=== PATIENT | male | born 1980 | race Caucasian/White ===

== ENCOUNTER 2021-09-25 | Emergency (ER) | payer OTHER, SELFPAY ==
--- NOTE | ~2021-09-25 | CT_ITS ---
EXAMINATION: CT ABDOMEN AND PELVIS WITHOUT CONTRAST CLINICAL INFORMATION: Right inguinal hernia, rule out incarceration COMPARISON: None TECHNIQUE: Multidetector volumetric imaging was performed from the superior aspect of the liver through the pubic symphysis. Sagittal and coronal reformatted images were obtained on the technologist's workstation. This CT examination was performed using dose optimization techniques as appropriate, variously including the following: *Automated exposure control *Adjustment of mA and/or kV according to patient size (this includes techniques or standardized protocols for targeted exams where dose is matched to indication/reason for exam; i.e. extremities or head) *Use of iterative reconstruction technique DLP: 813 mGy-cm FINDINGS: LUNG BASES: There is subtle tree-in-bud type nodularity in the basilar left lower lobe. LIVER, GALLBLADDER, AND BILIARY TREE: The liver is normal in size, shape, and attenuation. No focal hepatic lesion or biliary ductal dilatation is identified. The gallbladder is unremarkable with no evidence of radiopaque gallstones, gallbladder wall thickening, or obvious pericholecystic inflammatory changes. PANCREAS: Not adequately evaluated without intravenous contrast SPLEEN: Enlarged, measuring approximately 16 cm in the axial plane and 18 cm in craniocaudal dimension. ADRENAL GLANDS: Unremarkable. KIDNEYS AND URETERS: The kidneys are normal in size, shape, and attenuation. No hydronephrosis, hydroureter, or calculi seen. No perinephric stranding. BLADDER: Unremarkable. GASTROINTESTINAL TRACT: No evidence of bowel obstruction. There is moderate stool throughout the colon. No significant bowel wall thickening or pericolonic inflammation is seen, though assessment is suboptimal in some regions due to lack of intra-abdominal fat. Appendix appears nondilated. No free fluid or free air is seen. ABDOMINAL WALL/MUSCULATURE: No appreciable hernia. There is asymmetric enlargement and heterogeneous hyperattenuation of the right iliacus and inferior psoas muscle, suspicious for intramuscular hematoma. In the axial plane this measures up to approximately 10.2 x 7.4 cm, and this extends inferiorly into the proximal thigh for approximately 14 cm in total craniocaudal dimension. There is adjacent stranding in the right retroperitoneum and between muscle planes in the proximal thigh. LYMPH NODES: No lymphadenopathy is seen, though assessment is significantly limited in the absence of intravenous contrast and lack of intra-abdominal fat. VASCULAR: There is atherosclerotic calcification along the aorta. PELVIC VISCERA: Unremarkable. OSSEOUS STRUCTURES: There is disc space narrowing with surrounding endplate sclerosis at T10-T11. CT/CT abdomen pelvis wo con IMPRESSION: 1. Asymmetric enlargement and heterogeneous hyperattenuation of the right iliacus and inferior psoas muscle, suspicious for intramuscular hematoma. Surrounding edema in the thigh and retroperitoneum. 2. Splenomegaly. 3. Subtle tree-in-bud type pulmonary nodularity in the left lower lobe, suggesting mild infectious/inflammatory bronchiolitis. 4. Disc space narrowing with surrounding endplate sclerosis at T10-T11, which could reflect chronic sequelae of osteomyelitis in the proper clinical setting.
--- NOTE | ~2021-09-25 | CT_ITS ---
EXAMINATION: CT FEMUR WITHOUT CONTRAST, RIGHT CLINICAL INFORMATION: Pop in right thigh, now with severe pain COMPARISON: CT abdomen/pelvis performed concurrently TECHNIQUE: No intravenous contrast was utilized. Multidetector helical imaging was performed through the right femur. Coronal and sagittal reformatted images were created. This CT examination was performed using dose optimization techniques as appropriate, variously including the following: *Automated exposure control *Adjustment of mA and/or kV according to patient size (this includes techniques or standardized protocols for targeted exams where dose is matched to indication/reason for exam; i.e. extremities or head) *Use of iterative reconstruction technique DLP: 813 mGy-cm FINDINGS: There is redemonstration of heterogeneous hyperattenuation and enlargement of the right iliacus and the lower iliopsoas muscle most suspicious for intramuscular hematoma. This extends into the distal portion of the musculature in the proximal right thigh. There is surrounding stranding in the right retroperitoneum and within the intermuscular fat planes in the thigh. Overall extent of this abnormality is better seen on accompanying abdomen/pelvis CT. Osseous alignment across the hip is anatomic, and the joint space appears slightly narrowed. No acute fracture is seen. Alignment at the knee is anatomic without significant effusion. Intrapelvic structures are described on separate abdomen/pelvis CT report. CT/CT femur RT wo con IMPRESSION: As noted on the accompanying abdomen/pelvis CT, there is asymmetric enlargement and heterogeneous hyperattenuation of the right iliacus and inferior psoas muscle, suspicious for intramuscular hematoma. Surrounding edema in the thigh and retroperitoneum.
[2021-09-25 00:12] VITALS: BP 133/82; PULSE 74; RESP 14; TEMP 37; O2SAT 100
[2021-09-25 00:45] LABS: Basophils Percent Auto 0.2 % (0-2); Eosinophils Percent Auto 0.5 % (0-4); Hemoglobin 8.4 g/dl (14.0-18.0); Neutrophils Percent Auto 73.2 % (45-73); PLT ABN DIST 1; Red Cell Distribution Width 22.5 % (11.0-16.0); SCAN SMEAR FLAG 1
[2021-09-25 00:46] LABS: Hematocrit 27.1 % (42.0-52.0); Imm Gran Abs Auto 0.02 X10*3/uL (0.00-0.03); Imm Gran Pct Auto 0.3 % (0.0-0.4); Lymphocytes Percent Auto 16.8 % (20-40); Mean Corpuscular Hemoglobin 21.1 pg (27.0-33.0); Mean Corpuscular Volume 67.9 fL (80.0-98.0); Monocytes Absolute Auto 0.5 X10*3/uL (0.1-1.2); Neutrophils Absolute Auto 4.4 x10*3/uL (2.0-8.3); Platelet Count 125 X10*3/uL (160-400); Red Blood Count 3.99 X10*6/uL (4.60-5.80)
[2021-09-25 00:47] LABS: MANUAL DIFF FLAG NO
[2021-09-25 01:15] LABS: Alanine Aminotransferase 19 U/L (0-40); Albumin Level 3.9 g/dL (3.5-5.0); Alkaline Phosphatase 52 U/L (39-117); Anion Gap 16 (12-20); Aspartate Amino Transferase 40 U/L (5-37); Bilirubin Direct 0.5 mg/dL (0.0-0.5); Bilirubin Total 1.2 mg/dL (0.0-1.0); Blood Urea Nitrogen 14 mg/dL (9-16); Calcium 9.1 mg/dL (8.4-10.2); Carbon Dioxide 23 mmol/L (22-29); Chloride 98 mmol/L (96-108); Creatinine Clr Calc Pharmacy 94.8; Estimated Glomerular Filt Rate > 60; Glucose Random 143 mg/dL (60-115); Lipase 14 U/L (8-78); Potassium 3.8 mmol/L (3.3-5.1); Sodium 133 mmol/L (135-145); Total Protein 6.8 g/dL (6.5-8.0)
[2021-09-25 02:34] LABS: Appearance Urine CLEAR; Color Urine DK YELLOW; Glucose Urine UA NEG (NEG); Leukocyte Esterase Urine NEG (NEG); Nitrite Urine NEG (NEG); Urine Blood NEG (NEG); Urine Ketones NEG (NEG); Urine Protein 1+ MG/DL (NEG-TRACE)
[2021-09-25 02:39] LABS: RBC Urine 0-2 /HPF (0); Squamous Epithelial Cell Urine 1+ /LPF
--- NOTE | 2021-09-25 03:06 | ED_ITS ---
HPI - Abdominal Pain General Chief Complaint: Abdominal Pain Stated Complaint: hernia Time Seen by Provider: 09/25/21 02:53 Source: patient Mode of arrival: ambulatory Limitations: no limitations History of Present Illness HPI narrative: This is a 41-year-old male history of hemophilia (factor 8 deficiency) came in with abdominal pain for 2 days patient is known to have hernia now he has been having pain since for 2 days, feeling nauseous but no vomiting, had small bowel movements, passing flatus. While his friend was helping him to get into the car he pulled his right thigh felt a pop, patient states that the pain has been worsening for the last 2 days worry about bleeding inside the hip joint. Related Data Allergies Allergy/AdvReac Type Severity Reaction Status Date / Time aspirin AdvReac Intermediate Others Verified 09/25/21 02:56 morphine AdvReac Intermediate Headache Verified 09/25/21 02:56 Review of Systems Review of Systems All other systems are reviewed and are negative Constitutional: Reports as per HPI and Reports no additional constitutional complaints Eyes: Reports as per HPI and Reports no additional eye complaints Reports system reviewed and no additional complaints, except as documented Cardiovascular: Reports as per HPI and Reports no additional cardiovascular complaints Respiratory: Reports as per HPI and Reports no additional respiratory complaints Gastrointestinal: Reports as per HPI and Reports no additional gastrointestinal complaints Genitourinary: Reports no additional female genitourinary complaints Musculoskeletal: Reports no additional musculoskeletal complaints Skin/Breast: Reports system reviewed and no additional complaints, except as docu Psychiatric: Reports no additional psychiatric complaints Endocrine: Reports no additional endocrine complaints Hematologic/Lymphatic: Reports no additional hematologic/lymphatic complaints Allergic/Immunologic: Reports no additional allergic/immunologic complaints Reports system reviewed and no additional complaints, except as documented and Reports Abnormal speech present [facility] Social History Social History Advance Directives: No Physical Exam ED Vital Signs: Vital Signs - 24 hr 09/25/21 00:12 09/25/21 03:55 09/25/21 05:57 Temperature 98.6 F Pulse Rate 74 72 60 Respiratory Rate 14 16 16 Blood Pressure 133/82 119/71 111/60 Pulse Oximetry 100 99 100 BMI result Body Mass Index 20.0 Vital signs have been reviewed as appeared to be correct. Blood pressure normal. Heart rate normal. Respiration rate normal. Temperature normal. Oxygen saturation normal. Appearance: Alert. Oriented X3. No acute distress. Head: Normal external exam. Normocephalic. Atraumatic. No Boston signs noted. No raccoon eyes noted Eyes: PERRLA. EOMI. Conjunctiva and sclera normal. Eyelids normal. ENT: TM's Normal. Pharynx normal. Uvula midline. Moist mucous membranes. No trismus noted. No drooling noted. No muffled voice noted. Neck: Normal inspection. Neck supple. FROM. No adenopathy. Thyroid Normal. No meningeal signs. No neck mass noted. CVS: Normal heart rate and rhythm. Heart sound normal. No murmurs noted. Pulses normal throughout. Respiratory: No respiratory distress. Painless inspiration. Breath sounds norm al. No wheezes/rales/rhonchi noted. Chest nontender. No accessory muscle usage noted or decreased air movement noted. Abdomen: Soft and nontender. Bowel sounds normal in all 4 quadrants. No distenti on noted. No organomegaly noted. No visible injury noted. Back: No CVA tenderness. Full range of motion noted. Skin: Skin warm and dry. Normal skin color. Normal skin turgor. No rashes/lesions/lacerations noted. Extremities: No lower extremity edema. Extremities exhibit normal range of motion. Extremities nontender. Neuro: Oriented X 3. Cranial nerve exam: II-XII are grossly intact No motor deficit. No sensory deficit. Reflexes normal. Course Course Course Narrative: Assessment and plan. 41-year-old male with history of hemophilia and factor 8 deficiency came in with right lower extremities pain and right-sided abdominal pain, CBC showed anemia. Await for CT to rule internal bleed, will consult Oncology/Hematology, case signed out to Dr. Lazo. MDM - Abdominal Pain Lab Data Result diagrams: 09/25/21 00:35 09/25/21 00:34 Labs: Lab Results 09/25/21 09/25/21 09/25/21 Range/Units 00:34 00:35 02:27 WBC 6.0 (4.8-10.8) X10*3/uL RBC 3.99 L (4.60-5.80) X10*6/uL Hgb 8.4 L (14.0-18.0) g/dl Hct 27.1 L (42.0-52.0) % MCV 67.9 L (80.0-98.0) fL MCH 21.1 L (27.0-33.0) pg MCHC 31.0 (31.0-36.0) g/dl RDW 22.5 H (11.0-16.0) % Plt Count 125 L (160-400) X10*3/uL MPV TNP Immature Gran % (Auto) 0.3 (0.0-0.4) % Neut % (Auto) 73.2 H (45-73) % Lymph % (Auto) 16.8 L (20-40) % Winston % (Auto) 9.0 (2-11) % Eos % (Auto) 0.5 (0-4) % Baso % (Auto) 0.2 (0-2) % Lymph # (Auto) 1.0 L (1.2-4.9) X10*3/uL Winston # (Auto) 0.5 (0.1-1.2) X10*3/uL Eos # (Auto) 0.0 (0.0-0.4) X10*3/uL Baso # (Auto) 0.0 (0.0-0.2) X10*3/uL Abs Immat Gran (auto) 0.02 (0.00-0.03) X10*3/uL Absolute Neuts (auto) 4.4 (2.0-8.3) x10*3/uL Absolute Nucleated RBC 0.000 (0.0-0.012) X10*3/uL Nucleated RBC % (auto) 0.0 (0.0-0.2) /100WBC Sodium 133 L (135-145) mmol/L Potassium 3.8 (3.3-5.1) mmol/L Chloride 98 (96-108) mmol/L Carbon Dioxide 23 (22-29) mmol/L Anion Gap 16 (12-20) BUN 14 (9-16) mg/dL Creatinine 0.93 (0.5-1.4) mg/dL Estim Creat Clear Calc 94.8 Estimated GFR > 60 Random Glucose 143 H (60-115) mg/dL Calcium 9.1 (8.4-10.2) mg/dL Total Bilirubin 1.2 H (0.0-1.0) mg/dL Direct Bilirubin 0.5 (0.0-0.5) mg/dL AST 40 H (5-37) U/L ALT 19 (0-40) U/L Alkaline Phosphatase 52 (39-117) U/L Total Protein 6.8 (6.5-8.0) g/dL Albumin 3.9 (3.5-5.0) g/dL Lipase 14 (8-78) U/L Urine Color DK YELLOW Urine Appearance CLEAR Urine pH 6.0 (5.0-8.0) Ur Specific Ewing 1.020 (1.005-1.025) Urine Protein 1+ H (NEG-TRACE) MG/DL Urine Glucose (UA) NEG (NEG) MG/DL Urine Ketones NEG (NEG) MG/DL Urine Blood NEG (NEG) Urine Nitrite NEG (NEG) Ur Leukocyte Esterase NEG (NEG) Urine RBC 0-2 (0) /HPF Urine WBC 1-4 (0-4) /HPF Ur Squamous Epith Cells 1+ /LPF Urine Bacteria NONE /LPF Discharge Plan Discharge Clinical Impression: Abdominal pain, Hemophilia Patient Disposition: Still a Patient
[2021-09-25] MEDS: oxyCODONE HCl Immed Release 5 MG TABLET PO ×2 (03:52→07:51)
[2021-09-25 03:55] VITALS: BP 119/71; PULSE 72; RESP 16; O2SAT 99
[2021-09-25] MEDS: oxyCODONE HCl Immed Release 5 MG TABLET 10 MG PO (04:47)
--- NOTE | 2021-09-25 05:15 | PC.NURSE ---
weatherization field technician mentioned that pt was unwilling to straighten his legs for the CT exam. Flaca MENSAH medicated pt with oxycodone 5mg IR and weatherization field technician will now try again.
[2021-09-25 05:57] VITALS: BP 111/60; PULSE 60; RESP 16; O2SAT 100
--- NOTE | 2021-09-25 05:58 | PC.NURSE ---
Per Dr. Gato fam for pt to have 10mg oxycodone IR for CT procedure.
[2021-09-25 07:37] LABS: COVID-19 Test Negative (Negative)
[2021-09-25 08:24] VITALS: BP 128/88; PULSE 67; RESP 15; O2SAT 94
--- NOTE | 2021-09-25 09:07 | PC.NURSE ---
with u/s IV placed in right upper forearm by , labs also drawn off the line
[2021-09-25] MEDS: HYDROmorphone HCl 0.5 MG/0.5 ML SYRINGE IVPUSH (09:12)
[2021-09-25 09:16] LABS: INTERNATIONAL NORM RATIO 1.2 (0.9-1.1); Prothrombin Time 13.9 SEC (9.9-13.0)
[2021-09-25 09:20] LABS: Fibrinogen > 700 MG/DL (259-690)
== END 2021-09-25 10:25 | disposition left against medical advice (07) ==
PROVIDERS: Emergency Medicine; Emergency Provider Student in an Organized Health Care Education/Training Program
DX: R10.9 Unspecified abdominal pain (principal); D66 Hereditary factor VIII deficiency; D64.9 Anemia, unspecified; S70.11XA Contusion of right thigh, initial encounter; K40.90 Unilateral inguinal hernia, without obstruction or gangrene, not specified as recurrent; Z20.822 Contact with and (suspected) exposure to COVID-19; X58.XXXA Exposure to other specified factors, initial encounter; Y93.9 Activity, unspecified; Y92.9 Unspecified place or not applicable; Y99.9 Unspecified external cause status
CPT/HCPCS: 36410; 36415; 73700; 74176; 80053; 81001; 82248; 83690; 85025; 85240; 85250; 85384; 85610; 85730; 86850; 86900; 86901; 87635; 96374; 99284; J1170

== ENCOUNTER 2022-03-24 23:45 | Emergency (ER) | payer OTHER, SELFPAY ==
[2022-03-25 00:10] VITALS: BP 113/65; PULSE 106; RESP 18; TEMP 37.2; O2SAT 100; BMI 18.6
[2022-03-25 03:03] VITALS: BP 106/64; PULSE 73; RESP 13; TEMP 36.4; O2SAT 100
--- NOTE | 2022-03-25 05:55 | PC.NURSE ---
at bedside. Bilateral lower leg wound dressing changed.
--- NOTE | 2022-03-25 05:58 | ED_ITS ---
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 He is declining to state this time but states that he will come back after he has ?gotten his girlfriend settled in?. Related Data Previous Rx's Medication Instructions Recorded cephalexin 500 mg capsule 500 mg PO BID 7 days #14 caps 03/25/22 doxycycline hyclate 100 mg tablet 100 mg PO BID 7 days #14 tabs 03/25/22 Allergies Allergy/AdvReac Type Severity Reaction Status Date / Time aspirin AdvReac Intermediate Others Verified 03/25/22 00:17 morphine AdvReac Intermediate Headache Verified 03/25/22 00:17 Review of Systems Review of Systems: Pertinent positives and negatives as stated in HPI 10 point review of systems is otherwise negative. [facility] [place] Past Medical History Source: nursing notes reviewed Social History Social History Alcohol intake: never Patient Tobacco Use Status: Former Tobacco user Substance Use Type: Heroin Advance Directives: No Physical Exam Vital Signs: Vital Signs: Last Vital Signs Temp 97.6 F 03/25/22 03:03 Pulse 73 03/25/22 03:03 Resp 13 03/25/22 03:03 BP 106/64 03/25/22 03:03 Pulse Ox 100 03/25/22 03:03 O2 Del Method 03/25/22 03:03 BMI result Body Mass Index 18.6 VITAL SIGNS: Reviewed. GENERAL: Chronically ill, cachectic, in mild distress. HEAD: Normocephalic/atraumatic EYES: PERRLA, EOMI EARS: Ext canals without abnormality OROPHARYNX: no oral lesions noted, posterior pharynx clear LUNGS: Normal breath sounds. No adventitious sounds or accessory muscle use. SpO2<100> CARDIOVASCULAR: Regular rate and rhythm without noted murmurs ABDOMEN: Soft, non-tender, non-distended with bowel sounds. MUSCULOSKELETAL: No tenderness, deformities, or effusions noted on gross inspection. EXTREMITIES: No cyanosis, clubbing or edema; BILATERAL LOWER LEGS: Multiple ulcerations in various stages with obvious necrosis and foul odor. SKIN: Inspection of the skin reveals no rashes NEUROLOGIC: Alert and oriented x 4. Strength and sensation to light touch were grossly intact x 4. Skin: Other: Course Course Course Narrative: 41-year-old male who does not wish to stay but is agreeable to start antibiotics and says that he will return for a more complete evaluation after he gets his girlfriend settled in. We did give him initial antibiotics here in the emergenc y room and sent a prescription to his pharmacy. In addition, I gave him a referral to follow-up with the [facility]. Discharge Plan Discharge Clinical Impression: Non-healing ulcer of lower leg with fat layer exposed Patient Disposition: Home, Self-Care Instructions: Cellulitis (ED) Additional Instructions: 1. You should return to the emergency room after you have your personal situat ion taking care of. 2. You have been prescribed antibiotics as well as provided with a referral to teresa [email or web address]-up with the [facility]. Return to the ER for worsening symptoms. Prescriptions: New doxycycline hyclate 100 mg tablet 100 mg PO BID 7 Days Qty: 14 0RF cephalexin 500 mg capsule 500 mg PO BID 7 Days Qty: 14 0RF Referrals: [facility] [place] [facility] [Outside]
[2022-03-25] MEDS: Doxycycline Monohydrate 100 MG CAPSULE PO (06:07)
[2022-03-25] MEDS: cephALEXin 500 MG CAPSULE PO (06:07)
--- NOTE | 2022-03-25 06:24 | PC.NURSE ---
Discharge instructions reviewed with pt. Pt advised to return to the ED once personal situation is resolved. Pt agrees with plan and verbalizes understanding.
== END 2022-03-25 06:28 | disposition home or self-care (01) ==
PROVIDERS: Emergency Provider Student in an Organized Health Care Education/Training Program
DX: L97.922 Non-pressure chronic ulcer of unspecified part of left lower leg with fat layer exposed (principal); L97.912 Non-pressure chronic ulcer of unspecified part of right lower leg with fat layer exposed; F19.10 Other psychoactive substance abuse, uncomplicated; Z87.891 Personal history of nicotine dependence
CPT/HCPCS: 99283

== ENCOUNTER 2022-03-25 06:50 | Observation (INO) | payer OTHER, SELFPAY ==
[2022-03-25 06:52] VITALS: BMI 21.5
--- NOTE | 2022-03-25 07:24 | ED.SKABFB ---
HPI - Skin/Abscess/Foreign Bdy General Chief complaint: Skin/Abscess/Foreign Body Stated complaint: wound check Time Seen by Provider: 03/25/22 07:17 Source: patient Mode of arrival: ambulatory History of Present Illness HPI narrative: 41 yo male presents to the ED with bilateral lower extremity wounds. The patient was seen earlier today for same but left AMA b/c of social issues. The patient states this has been worsening over the past several days, present for at least a couple of weeks. Denies fever or shaking chills. Has not tried anything to improve the wounds. complaint: lesion Onset (ago): week(s) Location: LLE and RLE Severity: severe Related Data Previous Rx's Medication Instructions Recorded cephalexin 500 mg capsule 500 mg PO BID 7 days #14 caps 03/25/22 doxycycline hyclate 100 mg tablet 100 mg PO BID 7 days #14 tabs 03/25/22 Allergies Allergy/AdvReac Type Severity Reaction Status Date / Time aspirin AdvReac Intermediate Others Verified 03/25/22 00:17 morphine AdvReac Intermediate Headache Verified 03/25/22 00:17 Review of Systems Constitutional: Constitutional: Denies chills, Denies fatigue, Denies fever(s) and Denies headache(s) Eyes: Eyes: Denies blurry vision, Denies diplopia and Denies loss of vision ENT: Denies dizziness, Denies headache(s) and Denies nasal congestion Cardiovascular: Cardiovascular: Denies chest pain, Denies syncope, Denies lightheadedness, Denies Loss of Consciousness and Denies dyspnea Respiratory: Respiratory: Denies cough and Denies dyspnea Gastrointestinal: Gastrointestinal: Denies constipation, Denies nausea and Denies vomiting Genitourinary: Genitourinary: Denies oliguria and Denies difficulty urinating Musculoskeletal: Musculoskeletal: Denies back pain and Denies muscle weakness Integumentary/Breasts: Skin/Breast: Reports as per HPI, Reports skin ulcer, Reports sores and Reports wounds Neurologic: Denies Abnormal speech present, Denies dizziness, Denies syncope, Denies headache(s) and Denies loss of vision Psychiatric: Psychiatric: Reports no additional psychiatric complaints Endocrine: Endocrine: Denies fatigue PMFSH Past Medical History Attestation statement: The following information was validated with the patient. Social History Social History Alcohol intake: never Patient Tobacco Use Status: Former Tobacco user Substance Use Type: Heroin Advance Directives: No Physical Exam Vital Signs: Vital Signs: BMI result Body Mass Index 21.5 Const: General: cooperative and no acute distress Nutritional Appearance: underweight Orientation/consciousness: patient oriented x3 Limitations: No altered mental status HEENT: Head: Yes normal to inspection, Yes normocephalic and Yes atraumatic Ears: external ears normal General nose exam: Normal external nose present Face and sinus: Yes normal facial exam Eyes: Conjunctivae: conjunctivae normal Sclerae: sclerae normal Pupils: Equal, round and reactive pupils present EOM: EOMs intact bilaterally Neck: Neck: Yes normal visual inspection and Yes full ROM Chest: Chest palpation & inspection: normal inspection of the chest Resp: Effort & Inspection: normal respiratory effort, able to speak in complete sentences and no audible wheezes Cardio: Rate: regular rate Rhythm: regular rhythm GI: Inspection: Yes normal to inspection and No Abdominal wall edema Skin: Wounds: wounds noted Neuro: General: patient oriented x3 and CN's II-XI intact bilaterally Cranial nerves: Yes Equal, round and reactive pupils present Cognition (Neuro): normal cognition Speech: No Abnormal speech present Gait exam (Neuro): Normal gait present Extrem: Other: bilateral lower leg ulcerations as noted (pictures in chart from prior visit) Discharge Plan Discharge Prescriptions: No Action doxycycline hyclate 100 mg tablet 100 mg PO BID 7 Days Qty: 14 0RF cephalexin 500 mg capsule 500 mg PO BID 7 Days Qty: 14 0RF
[2022-03-25 07:55] LABS: MANUAL DIFF FLAG NO
[2022-03-25 07:58] LABS: Basophils Percent Auto 0.6 % (0-2); Eosinophils Absolute Auto 0.1 X10*3/uL (0.0-0.4); Eosinophils Percent Auto 3.5 % (0-4); Hematocrit 31.3 % (42.0-52.0); Hemoglobin 9.6 g/dl (14.0-18.0); Imm Gran Abs Auto 0.01 X10*3/uL (0.00-0.03); Imm Gran Pct Auto 0.3 % (0.0-0.4); Lymphocytes Absolute Auto 0.8 X10*3/uL (1.2-4.9); Lymphocytes Percent Auto 23.5 % (20-40); Mean Corpuscular HGB Conc 30.7 g/dl (31.0-36.0); Mean Corpuscular Hemoglobin 21.2 pg (27.0-33.0); Mean Corpuscular Volume 69.2 fL (80.0-98.0); Monocytes Absolute Auto 0.3 X10*3/uL (0.1-1.2); Monocytes Percent Auto 7.6 % (2-11); Neutrophils Absolute Auto 2.2 x10*3/uL (2.0-8.3); Neutrophils Percent Auto 64.5 % (45-73); Red Blood Count 4.52 X10*6/uL (4.60-5.80); Red Cell Distribution Width 17.5 % (11.0-16.0); White Blood Count 3.4 X10*3/uL (4.8-10.8)
[2022-03-25 08:09] LABS: Anion Gap 10 (12-20); Blood Urea Nitrogen 16 mg/dL (9-16); Calcium 9.2 mg/dL (8.4-10.2); Carbon Dioxide 31 mmol/L (22-29); Chloride 97 mmol/L (96-108); Creatinine Clr Calc Pharmacy 88.3; Estimated Glomerular Filt Rate > 60; Glucose Random 88 mg/dL (60-115); Potassium 3.6 mmol/L (3.3-5.1); Sodium 134 mmol/L (135-145)
[2022-03-25 08:20] LABS: Platelet Count 116 X10*3/uL (160-400)
--- NOTE | 2022-03-25 08:55 | PC.NURSE ---
continues to nod off sitting up in stretcher, alert to voice. bed rails put up for pt safety.
[2022-03-25] MEDS: vancomycin HCL 1,000 MG in 0.9 % Sodium Chloride 250 ML 270 MG IV (09:30)
[2022-03-25] MEDS: Ketorolac Tromethamine 15 MG/ML VIAL IVPUSH (10:48)
--- NOTE | 2022-03-25 12:10 | PM.IMHP ---
History of Present Illness Date of Service: 03/25/22 Attending physician on admission: Lonny Harmon Chief Complaint: Non-healing lower leg wounds Patient is a 41-year-old male with a PMH significant for extensive IVDA and hemophilia A who presents to the ED with ulcerated, non-healing lower leg wounds. Pt states that these wounds started a few weeks ago but have worsened in the past few days. Claims they hurt a little bit. Pt uses multiple bags of heroin daily and usually shoots up in his arms, which often get similar ulcerations. Pt denies chest pain or pressure, palpitations, SOB. No F/C, N/V, abdominal pain. No numbness or tingling in extremities. Of note, pt is somnolent but arousable and drifts in and out of sleep. HPI is difficult to extract. Pt states that he has a prescription for Advate for his hemophilia, but is non-compliant and has not taken his meds for a long time. In the ED pt at first did not want to stay but agreed to come back after he got his girlfriend settled in. Pt came back for and was given vanco 1g IV. He will be admitted for observation and surgical consult. Review of Systems Review of Systems: Multiple ulcerations of lower legs bilaterally Denies F/C, N/V No chest pain or pressure, palpitations No SOB Yes all other systems are reviewed and are negative [facility] Medical History (Updated 03/25/22 @ 12:42 by EDISON Post) Abscess of arm, left Pertinent family history: Brother has hemaphilia A Social History (Updated 03/25/22 @ 12:44 by EDISON Post) Alcohol intake: never Patient Tobacco Use Status: Current everyday Tobacco user Cigarette Packs Per Day: 0.5 Substance Use Type: Heroin Advance Directives: No Meds Allergies Allergy/AdvReac Type Severity Reaction Status Date / Time aspirin AdvReac Intermediate Others Verified 03/25/22 00:17 morphine AdvReac Intermediate Headache Verified 03/25/22 00:17 Active Medications: Current Medications Acetaminophen (Acetaminophen 325 Mg Tablet) 650 mg PO Q6H PRN PRN Reason: Pain, Mild (Pain Scale 1-3) Docusate Sodium (Docusate Sodium 100 Mg Capsule) 100 mg PO DAILY PRN PRN Reason: Constipation Doxycycline Monohydrate (Doxycycline Monohydrate 100 Mg Capsule) 100 mg PO Q12H [facility] Enoxaparin Sodium (Enoxaparin Sodium 40 Mg/0.4 Ml Syringe) 40 mg SUBCUT Q24H [facility] Ondansetron HCl (Ondansetron Hcl 4 Mg/2 Ml Vial) 4 mg IVPUSH Q8H PRN PRN Reason: Nausea and Vomiting Sodium Chloride (0.9 % Sodium Chloride Flush 3 Ml Syringe) 3 ml IVFLUSH QSHIFT IONA Sodium Chloride (0.9 % Sodium Chloride Flush 3 Ml Syringe) 3 ml IVFLUSH QSHIFT [facility] Physical Exam Vital Signs and Narrative: Vital Signs: BMI result Body Mass Index 21.5 Constitutional: Somnulent but arousable, drifting in and out of sleep. In no acute distress. Mental Status: Oriented to person, place and time. Eyes: Pupils are equal, round, and reactive to light. Ear, Nose, and Throat: Oropharynx clear, mucous membranes moist. Ears and nose without deformities. Trachea midline. Respiratory: Clear to auscultation bilaterally. No wheezing, rales, or rhonchi. Cardiovascular: S1, S2 regular. No murmurs, rubs, or gallops. Gastrointestinal: Abdomen soft, non-tender, non-distended. Normal bowel sounds. Neurologic: Cranial nerves II-XI are grossly intact. No focal neurological deficits. Moves all extremities spontaneously. Skin: Wounds in various stages of healing noted. Musculoskeletal: No cyanosis or clubbing. Extremities: Bilateral lower leg ulcerations, pictures in chart from prior visit. Multiple wounds in various stages of healing on upper arms. 4-5cm abscess on inside of left arm just superior to elbow. Results Labs CBC and Chem 7: 03/25/22 07:50 03/25/22 07:50 Labs: Laboratory Results - last 24 hr 03/25/22 03/25/22 07:50 07:50 MCV 69.2 L MCH 21.2 L MCHC 30.7 L RDW 17.5 H Plt Count 116 L MPV Not Reportable Immature Gran % (Auto) 0.3 Neut % (Auto) 64.5 Lymph % (Auto) 23.5 [place] % (Auto) 7.6 Eos % (Auto) 3.5 Baso % (Auto) 0.6 Lymph # (Auto) 0.8 L [place] # (Auto) 0.3 Eos # (Auto) 0.1 Baso # (Auto) 0.0 Abs Immat Gran (auto) 0.01 Absolute Neuts (auto) 2.2 Absolute Nucleated RBC 0.000 Nucleated RBC % (auto) 0.0 Anion Gap 10 L Estim Creat Clear Calc 88.3 Estimated GFR > 60 Random Glucose 88 Calcium 9.2 Assessment and Plan (1) Non-healing ulcer of lower leg with fat layer exposed: Status: Acute (2) Abscess of arm, left: Status: Acute (3) Hemophilia A: Status: Acute Plan Patient is a 41-year-old male with a PMH significant for extensive IVDA and hemophilia A who presents to the ED with ulcerated, non-healing lower leg wounds that have been worsening over the past few days. Pt will be admitted to observation for abx and surgery consult. # Bilateral lower leg ulcerations -- etiology unclear, possibly due to heroin injection -- not obviously infected -- doxycyline 100 PO bid -- pt does not meet sepsis criteria -- general surgery consult -- wound care clinic upon discharge # Left arm abscess -- likely due to heroin injection site -- general surgery consulted, drained # Hemaphilia A -- follow up with PCP to re-establish care # IVDA -- tox screen -- addiction medicine consult Full code Attending: Dr. Harmon DVT prophylaxis: Lovenox Pt will be admitted for observation for abx administration and surgery consultation. Anticipated stay is one night. Quality Stroke Does the patient have a stroke diagnosis?: No VTE Prior VTE?: No VTE Risk Level:: Medical - moderate - high VTE Device Contraindication: Treatment Not Indicated VTE Drug Contraindication: N/A - Med Ordered
--- NOTE | 2022-03-25 12:25 | P.CONGS_ITS ---
History of Present Illness Consult details Consult date: 03/25/22 Narrative: 41-year-old male referred for ulceration of the extremities. He said that he has had this for several weeks. He has a history of drug abuse and admits to skin popping. The patient otherwise does not offer much with regards to feels of his illness. He does state that he had seen wound care clinic before for wounds on his feet. He says that he does not know how his her started on both lower extremities. [facility] Past Medical History Medical History Abscess of arm, left Social History Social History (Updated 03/25/22 @ 12:44 by EDISON Post) Alcohol intake: never Patient Tobacco Use Status: Current everyday Tobacco user Tobacco use type: Cigarette Cigarette Packs Per Day: 0.5 Substance Use Type: Heroin Meds Allergies Allergy/AdvReac Type Severity Reaction Status Date / Time aspirin AdvReac Intermediate Others Verified 03/25/22 00:17 morphine AdvReac Intermediate Headache Verified 03/25/22 00:17 Active Medications: Current Medications Acetaminophen (Acetaminophen 325 Mg Tablet) 650 mg PO Q6H PRN PRN Reason: Pain, Mild (Pain Scale 1-3) Docusate Sodium (Docusate Sodium 100 Mg Capsule) 100 mg PO DAILY PRN PRN Reason: Constipation Doxycycline Monohydrate (Doxycycline Monohydrate 100 Mg Capsule) 100 mg PO Q12H [facility] Enoxaparin Sodium (Enoxaparin Sodium 40 Mg/0.4 Ml Syringe) 40 mg SUBCUT Q24H [facility] Ondansetron HCl (Ondansetron Hcl 4 Mg/2 Ml Vial) 4 mg IVPUSH Q8H PRN PRN Reason: Nausea and Vomiting Sodium Chloride (0.9 % Sodium Chloride Flush 3 Ml Syringe) 3 ml IVFLUSH QSHIFT IONA Sodium Chloride (0.9 % Sodium Chloride Flush 3 Ml Syringe) 3 ml IVFLUSH QSHIFT [facility] Physical Exam Vital Signs: Vital Signs: BMI result Body Mass Index 21.5 Const: General: comfortable and no acute distress Resp: Effort & Inspection: normal respiratory effort Cardio: Rate: regular rate GI: Palpation (GI): Soft to palpation, not firm and no guarding Extrem: Other: Multiple ulceration and weeping areas on both lower extremities, both the left and the right side, diffuse, no pus, no ongoing gangrene on the left upper arm note of a superficial abscess about 2.5 cm in diameter, well-defined, no surrounding cellulitis he has other areas of superficial skin necrosis secondary to skin popping Results Labs Result diagrams: 03/26/22 05:10 03/26/22 05:10 Labs: Abnormal lab results 03/25/22 03/25/22 Range/Units 07:50 07:50 WBC 3.4 L (4.8-10.8) X10*3/uL RBC 4.52 L (4.60-5.80) X10*6/uL Hgb 9.6 L (14.0-18.0) g/dl Hct 31.3 L (42.0-52.0) % MCV 69.2 L (80.0-98.0) fL MCH 21.2 L (27.0-33.0) pg MCHC 30.7 L (31.0-36.0) g/dl RDW 17.5 H (11.0-16.0) % Plt Count 116 L (160-400) X10*3/uL Lymph # (Auto) 0.8 L (1.2-4.9) X10*3/uL Sodium 134 L (135-145) mmol/L Carbon Dioxide 31 H (22-29) mmol/L Anion Gap 10 L (12-20) Short CBC 03/25/22 Range/Units 07:50 WBC 3.4 L (4.8-10.8) X10*3/uL Hgb 9.6 L (14.0-18.0) g/dl Hct 31.3 L (42.0-52.0) % Plt Count 116 L (160-400) X10*3/uL BMP 03/25/22 07:50 Sodium 134 L Potassium 3.6 Chloride 97 Carbon Dioxide 31 H BUN 16 Creatinine 1.07 Calcium 9.2 All other labs normal. Assessment and Plan (1) Abscess of arm, left: Status: Acute This appeared to be a very superficial abscess. I therefore used a large gauge needle to make a small incision and open this up. Large amounts of pus was drained. Cultures were taken. I covered the area with dry dressings. We can follow up on the culture results and adjust antibiotic treatment accordingly. (2) Non-healing ulcer of lower leg: Status: Acute He has diffuse multiple ulcers on both lower extremities. This appeared to be stasis ulcers but he does not seem to have any previous history of edema nor stasis. There does not appear to be any need for debridement this time. I will change dressings tomorrow and re-examine these ulcers. Procedures Date of Service Date of Service: 03/25/22 Abscess I/D Consent for Procedure: Elective - informed consent obtained ( verbal consent obtained) Site: upper extremity Side (if applicable): left Sedation/analgesia: none Technique: other ( incised with large gauge needle to make the opening) Amount of fluid (mL): 10 Packing used?: none
[2022-03-25 12:57] VITALS: BP 94/49; PULSE 49; RESP 13; TEMP 35.2; O2SAT 100
[2022-03-25] MEDS: Doxycycline Monohydrate 100 MG CAPSULE PO ×2 (13:04→23:47)
[2022-03-25] MEDS: 0.9 % Sodium Chloride Flush 3 ML SYRINGE IVFLUSH ×4 (13:04→23:59)
--- NOTE | 2022-03-25 13:47 | MHC.RECOVRN ---
This editorial writer met w/ pt, pt was resting, awake to verbal stimuli. Discussed pt was tired, needed to rest, t/w to f/u later. Pt resting comfortably.
--- NOTE | 2022-03-25 14:29 | PC.NURSE ---
Pt continues to rest quietly in bed, offering no complaints at this time. Pending bed assignment.
[2022-03-25 15:33] VITALS: BP 109/56; PULSE 56; RESP 12; TEMP 35.9; O2SAT 99
[2022-03-25 15:56] LABS: COVID-19 Test Negative (Negative); IDNOW Serial# 16C4AD1C
--- NOTE | 2022-03-25 16:28 | PM.EVENT ---
Event Note Date of Service: 03/25/22 Event Note: Addiction consult Attempted to meet with patient in [facility] bed 5. Patient unable to stay awake. Will follow up tomorrow morning
--- NOTE | 2022-03-25 17:25 | PC.NURSE ---
Pt up to use bathroom, ambulating with steady gait to bathroom.
[2022-03-25 17:43] LABS: Amphetamine Screen Urine Not Detected (Not Detect); Barbiturates, Urine Not Detected (Not Detect); Benzodiazepines Screen Urine Not Detected (Not Detect); Cannabinoid Screen Urine Not Detected (Not Detect); Cocaine Screen Urine POSITIVE (Not Detect); Fentanyl, urine POSITIVE (Not Detect); Opiate Screen Urine POSITIVE (Not Detect); Phencyclidine Screen Urine Not Detected (Not Detect)
--- NOTE | 2022-03-25 20:04 | PC.NURSE ---
Report given, pt awake eating dinner before transportation to floor.
[2022-03-25 20:34] VITALS: BP 96/51; PULSE 70; RESP 18; TEMP 36.7; O2SAT 100
[2022-03-25 23:23] VITALS: BP 107/55; PULSE 77; RESP 18; TEMP 37.2; O2SAT 93
[2022-03-26 04:00] VITALS: BP 110/78; PULSE 71; RESP 18; TEMP 36.6; O2SAT 96
[2022-03-26 05:39] LABS: Hemoglobin 8.8 g/dl (14.0-18.0); PLT ABN DIST 1
[2022-03-26 05:40] LABS: Hematocrit 28.6 % (42.0-52.0); Mean Corpuscular HGB Conc 30.8 g/dl (31.0-36.0); Mean Corpuscular Hemoglobin 21.3 pg (27.0-33.0); Mean Corpuscular Volume 69.2 fL (80.0-98.0); Platelet Count 111 X10*3/uL (160-400); Red Blood Count 4.13 X10*6/uL (4.60-5.80); Red Cell Distribution Width 17.6 % (11.0-16.0); White Blood Count 2.8 X10*3/uL (4.8-10.8)
[2022-03-26 05:51] LABS: Anion Gap 10 (12-20); Blood Urea Nitrogen 15 mg/dL (9-16); Calcium 8.4 mg/dL (8.4-10.2); Carbon Dioxide 26 mmol/L (22-29); Chloride 102 mmol/L (96-108); Creatinine Clr Calc Pharmacy 95.4; Estimated Glomerular Filt Rate > 60; Glucose Random 91 mg/dL (60-115); Potassium 3.9 mmol/L (3.3-5.1); Sodium 134 mmol/L (135-145)
[2022-03-26 07:31] VITALS: BP 129/60; PULSE 81; RESP 17; TEMP 36.6; O2SAT 98
--- NOTE | 2022-03-26 08:55 | HO.PM.IMPN ---
Subjective Subjective Date of Service: 03/26/22 Interval History: Pt seen for f/u for ulcerated wounds on lower legs. Interval history: Pt reports no acute concerns overnight. This morning much more alert and capable of answering all questions. Complains of continued lower leg pain, 11/01. Pt unsure how he got his leg wounds. Denies trauma, skin popping. No chest pain/pressure, palpitations, SOB. Denies N/V, F/C, abdominal pain. No diaphoresis, lacrimation, rhinorrhea. Surgery consulted and drained an abscess on upper leg arm. Awaiting addiction medicine consult, who attempted to visit pt last night but found him incapable of staying awake. Review of Systems Bilateral lower leg pain Denies chest pain/pressure No SOB No N/V, F/C, diaphoresis, lacrimation Review of Systems: Yes all other systems are reviewed and are negative Physical Exam Vital Signs: Vital Signs: Last Vital Signs Temp 97.9 F 03/26/22 07:31 Pulse 81 03/26/22 07:31 Resp 17 03/26/22 07:31 BP 129/60 03/26/22 07:31 Pulse Ox 98 03/26/22 07:31 O2 Del Method 03/26/22 07:31 BMI result Body Mass Index 21.5 General: AOx3, no acute distress Resp: CTA bilaterally CVS: S1, S2, RRR GI: +BS, NT, no distention Skin: Wounds in various stages of healing noted on arms and lower legs bilaterally Extremities: Bilateral lower leg ulcerations, pictures in chart from prior visit. Multiple wounds in various stages of healing on upper arms. Neuro: Motor grossly intact Psych: Appropriate affect Objective Data Active Medications Acetaminophen (Acetaminophen 325 Mg Tablet) 650 mg PO Q6H PRN PRN Reason: Pain, Mild (Pain Scale 1-3) Docusate Sodium (Docusate Sodium 100 Mg Capsule) 100 mg PO DAILY PRN PRN Reason: Constipation Doxycycline Monohydrate (Doxycycline Monohydrate 100 Mg Capsule) 100 mg PO Q12H [facility] Last Admin: 03/25/22 23:47 Dose: 100 mg Documented By: SERENE Enoxaparin Sodium (Enoxaparin Sodium 40 Mg/0.4 Ml Syringe) 40 mg SUBCUT Q24H [facility] Last Admin: 03/25/22 13:09 Dose: Not Given Documented By: PRICE Non-Admin Reason: Patient Refused Nicotine (Nicotine 21 Mg Patch.Td24) 21 mg TRANSDERMA DAILY [facility] Last Admin: 03/25/22 19:14 Dose: Not Given Documented By: PRICE Non-Admin Reason: Patient Refused Ondansetron HCl (Ondansetron Hcl 4 Mg/2 Ml Vial) 4 mg IVPUSH Q8H PRN PRN Reason: Nausea and Vomiting Sodium Chloride (0.9 % Sodium Chloride Flush 3 Ml Syringe) 3 ml IVFLUSH QSHIFT [facility] Last Admin: 03/25/22 23:59 Dose: 3 ml Documented By: SERENE Sodium Chloride (0.9 % Sodium Chloride Flush 3 Ml Syringe) 3 ml IVFLUSH QSHIFT [facility] Last Admin: 03/26/22 00:02 Dose: Not Given Documented By: SERENE Non-Admin Reason: Previously Administered Labs CBC & Chem 7: 03/26/22 05:10 03/26/22 05:10 Labs: Laboratory Results - last 24 hr 03/25/22 03/25/22 03/26/22 15:35 17:26 05:10 MCV 69.2 L MCH 21.3 L MCHC 30.8 L RDW 17.6 H Plt Count 111 L MPV TNP Absolute Nucleated RBC 0.000 Nucleated RBC % (auto) 0.0 Anion Gap Estim Creat Clear Calc Estimated GFR Random Glucose Calcium Urine Opiates Screen POSITIVE H Urine Fentanyl Screen POSITIVE H Ur Barbiturates Screen Not Detected Ur Phencyclidine Scrn Not Detected Ur Amphetamines Screen Not Detected U Benzodiazepines Scrn Not Detected Urine Cocaine Screen POSITIVE H U Marijuana (THC) Screen Not Detected COVID-19 (TIN) Negative COVID-19 Clin Com See Note 03/26/22 05:10 MCV MCH MCHC RDW Plt Count MPV Absolute Nucleated RBC Nucleated RBC % (auto) Anion Gap 10 L Estim Creat Clear Calc 95.4 Estimated GFR > 60 Random Glucose 91 Calcium 8.4 D Urine Opiates Screen Urine Fentanyl Screen Ur Barbiturates Screen Ur Phencyclidine Scrn Ur Amphetamines Screen U Benzodiazepines Scrn Urine Cocaine Screen U Marijuana (THC) Screen COVID-19 (TIN) COVID-19 Clin Com Microbiology Microbiology Results: Microbiology 03/25/22 12:52 MRSA Culture - Final Groin, Left Assessment and Plan (1) Hemophilia A: Status: Acute (2) Abscess of arm, left: Status: Acute (3) Non-healing ulcer of lower leg: Status: Acute Plan Plan Patient is a 41-year-old male with a PMH significant for extensive IVDA and hemophilia A who presents to the ED with ulcerated, non-healing lower leg wounds that have been worsening over the past few days. Pt was admitted to observation for abx and surgery consult. # Bilateral lower leg ulcerations -- etiology unclear, possibly due to heroin injection/skin popping -- not obviously infected: no pus, gangrene, necrosis -- doxycyline 100 PO bid -- pt does not meet sepsis criteria -- general surgery consulted and do not suggest debridement -- daily dressing changes -- wound care clinic upon discharge # Left arm abscess -- likely due to heroin injection site -- general surgery consulted, drained -- cultures pending -- daily wound changes # Hemaphilia A -- follow up with PCP to re-establish care # IVDA -- tox screen positive for cocaine, fentanyl, opiates -- addiction medicine consult Full code Attending: Dr. Harmon DVT prophylaxis: Lovenox Pt seems stable an in no acute distress. Cultures pending, but no obvious need for IV abx. Awaiting addiction medicine consult. Pt likely to be discharged today with PO abx and wound care clinic follow up. Quality Stroke Does the patient have a stroke diagnosis?: No VTE Prior VTE?: No VTE Risk Level:: Medical - moderate - high VTE Device Contraindication: Treatment Not Indicated VTE Drug Contraindication: N/A - Med Ordered
[2022-03-26] MEDS: Nicotine 21 MG PATCH.TD24 TRANSDERMA (09:37)
[2022-03-26] MEDS: 0.9 % Sodium Chloride Flush 3 ML SYRINGE IVFLUSH (09:40)
--- NOTE | 2022-03-26 10:31 | PM.PNGS ---
Subjective Subjective Date of Service: 03/26/22 Interval history: denies new complaints does not verbalize much Physical Exam Vital Signs: Vital Signs: Last Vital Signs Temp 97.9 F 03/26/22 07:31 Pulse 81 03/26/22 07:31 Resp 17 03/26/22 07:31 BP 129/60 03/26/22 07:31 Pulse Ox 98 03/26/22 07:31 O2 Del Method 03/26/22 07:31 BMI result Body Mass Index 21.5 Const: General: comfortable and no acute distress Resp: Effort & Inspection: normal respiratory effort Cardio: Rate: regular rate GI: Palpation (GI): Soft to palpation and nontender Extrem: Other: diffuse ulcers, both lower legs, with weeping, no necrotic areas dressing on I&D site on the left upper arm clean Objective Data Active Medications Acetaminophen (Acetaminophen 325 Mg Tablet) 650 mg PO Q6H PRN PRN Reason: Pain, Mild (Pain Scale 1-3) Docusate Sodium (Docusate Sodium 100 Mg Capsule) 100 mg PO DAILY PRN PRN Reason: Constipation Doxycycline Monohydrate (Doxycycline Monohydrate 100 Mg Capsule) 100 mg PO Q12H [facility] Last Admin: 03/25/22 23:47 Dose: 100 mg Documented By: SERENE Enoxaparin Sodium (Enoxaparin Sodium 40 Mg/0.4 Ml Syringe) 40 mg SUBCUT Q24H [facility] Last Admin: 03/25/22 13:09 Dose: Not Given Documented By: PRICE Non-Admin Reason: Patient Refused Nicotine (Nicotine 21 Mg Patch.Td24) 21 mg TRANSDERMA DAILY [facility] Last Admin: 03/26/22 09:37 Dose: 21 mg Documented By: ASHLYN Ondansetron HCl (Ondansetron Hcl 4 Mg/2 Ml Vial) 4 mg IVPUSH Q8H PRN PRN Reason: Nausea and Vomiting Sodium Chloride (0.9 % Sodium Chloride Flush 3 Ml Syringe) [facility] Last Admin: 03/26/22 09:40 Dose: 3 ml Documented By: ASHLYN Sodium Chloride (0.9 % Sodium Chloride Flush 3 Ml Syringe) [facility] Last Admin: 03/26/22 09:41 Dose: Not Given Documented By: [email or web address] Non-Admin Reason: Previously Administered Labs CBC & Chem 7: 03/26/22 05:10 03/26/22 05:10 Labs: Laboratory Results - last 24 hr 03/25/22 03/25/22 03/26/22 15:35 17:26 05:10 MCV 69.2 L MCH 21.3 L MCHC 30.8 L RDW 17.6 H Plt Count 111 L MPV TNP Absolute Nucleated RBC 0.000 Nucleated RBC % (auto) 0.0 Anion Gap Estim Creat Clear Calc Estimated GFR Random Glucose Calcium Urine Opiates Screen POSITIVE H Urine Fentanyl Screen POSITIVE H Ur Barbiturates Screen Not Detected Ur Phencyclidine Scrn Not Detected Ur Amphetamines Screen Not Detected U Benzodiazepines Scrn Not Detected Urine Cocaine Screen POSITIVE H U Marijuana (THC) Screen Not Detected COVID-19 (TNI) Negative COVID-19 Clin Com See Note 03/26/22 05:10 MCV MCH MCHC RDW Plt Count MPV Absolute Nucleated RBC Nucleated RBC % (auto) Anion Gap 10 L Estim Creat Clear Calc 95.4 Estimated GFR > 60 Random Glucose 91 Calcium 8.4 D Urine Opiates Screen Urine Fentanyl Screen Ur Barbiturates Screen Ur Phencyclidine Scrn Ur Amphetamines Screen U Benzodiazepines Scrn Urine Cocaine Screen U Marijuana (THC) Screen COVID-19 (TIN) COVID-19 Clin Com Microbiology Microbiology Results: Microbiology 03/25/22 07:50 Blood Culture - Preliminary Blood - Venous No growth after 24 hours. 03/25/22 07:50 Blood Culture - Preliminary Blood - Venous No growth after 24 hours. 03/25/22 12:52 MRSA Culture - Final Groin, Left Procedures Date of Service Date of Service: 03/26/22 Progress Note: A&P Assessment and plan (1) Non-healing ulcer of lower leg: Status: Acute Assessment and Plan: I have changed all his dressings I applied nonadherent things to all of these ulcers wrapped both legs with Kerlix roll patient does not want to remove his socks and shoes okay to do wound care daily with non adherent dressings (2) Abscess of arm, left: Status: Acute Assessment and Plan: area dry patient however did not want me to change his dressings Time Spent With Patient Time: Total time spent is greater than 50% in coordination of care (as documented) at patient's floor/unit and/or counseling patient: Quality Stroke Does the patient have a stroke diagnosis?: No VTE Prior VTE?: No VTE Risk Level:: Medical - moderate - high VTE Device Contraindication: Treatment Not Indicated VTE Drug Contraindication: N/A - Med Ordered
[2022-03-26] MEDS: methADONE HCl 20 MG/2 ML ORAL.CONC PO (11:43)
[2022-03-26] MEDS: Doxycycline Monohydrate 100 MG CAPSULE PO (11:43)
--- NOTE | 2022-03-26 11:54 | HO.ADDICTCON ---
History of Present Illness Date of Service: 03/26/2022 Chief Complaint: Ulcerated, non-healing wounds on legs Reason for Consult: IVDU Discussed with referring provider: Yes Sources of Information: patient interviewed and chart reviewed HPI Narrative: Patient is a 41 [facility] with non healing leg wounds. Consult requested due to patients reported IVDU of cocaine and fentanyl. Patient seen by this promotion writer in room 386. Awake, alert, pleasant and engaged in interview. Patient reports he has been using up to 2 bundles of heroin/fentanyl IV daily. Reports he has been using for over 15 years. History of ATS admissions-most recent over a year ago Denies any history of overdose Denies any periods of sustained recovery Reports very briefly being prescribed suboxone, but states it did not help with his pain. States he has been considering methadone treatment, however he does not have a photo ID available. He has been staying in [place], [place]. At time of interview, he reported mild withdrawal sx,--chills, body aches, anxiety. Discussed patient's goals regarding substance use, and he would like to pursue OTP admission on his own--state she will go to [facility] and get replacement ID. He is not interested in ATS admission. Discussed safer injection use. Review of Systems Constitutional: Reports as per HPI Diagnostics Vital Signs (24Hr): Vital Signs - 24 hr 03/25/22 12:57 03/25/22 15:33 03/25/22 20:34 Temperature 95.3 F L 96.7 F L 98.1 F Pulse Rate 49 L 56 70 Respiratory Rate 13 12 18 Blood Pressure 94/49 L 109/56 L 96/51 L Pulse Oximetry 100 99 100 Oxygen Delivery Method Room Air Room Air Room Air 03/25/22 23:23 03/26/22 04:00 03/26/22 07:31 Temperature 98.9 F 97.8 F 97.9 F Pulse Rate 77 71 81 Respiratory Rate 18 18 17 Blood Pressure 107/55 L 110/78 129/60 Pulse Oximetry 93 96 98 Oxygen Delivery Method Room Air Room Air Room Air BMI result Body Mass Index 21.5 Labs Results: 03/26/22 05:10 03/26/22 05:10 Labs: Laboratory Results - last 48 hr 03/25/22 03/25/22 03/25/22 07:50 07:50 15:35 WBC 3.4 L RBC 4.52 L Hgb 9.6 L Hct 31.3 L MCV 69.2 L MCH 21.2 L MCHC 30.7 L RDW 17.5 H Plt Count 116 L MPV Not Reportable Immature Gran % (Auto) 0.3 Neut % (Auto) 64.5 Lymph % (Auto) 23.5 Callahan % (Auto) 7.6 Eos % (Auto) 3.5 Baso % (Auto) 0.6 Lymph # (Auto) 0.8 L Callahan # (Auto) 0.3 Eos # (Auto) 0.1 Baso # (Auto) 0.0 Abs Immat Gran (auto) 0.01 Absolute Neuts (auto) 2.2 Absolute Nucleated RBC 0.000 Nucleated RBC % (auto) 0.0 Sodium 134 L Potassium 3.6 Chloride 97 Carbon Dioxide 31 H Anion Gap 10 L BUN 16 Creatinine 1.07 Estim Creat Clear Calc 88.3 Estimated GFR > 60 Random Glucose 88 Calcium 9.2 Urine Opiates Screen Urine Fentanyl Screen Ur Barbiturates Screen Ur Phencyclidine Scrn Ur Amphetamines Screen U Benzodiazepines Scrn Urine Cocaine Screen U Marijuana (THC) Screen COVID-19 (TIN) Negative COVID-19 Clin Com See Note 03/25/22 03/26/22 03/26/22 17:26 05:10 05:10 WBC 2.8 L RBC 4.13 L Hgb 8.8 L Hct 28.6 L MCV 69.2 L MCH 21.3 L MCHC 30.8 L RDW 17.6 H Plt Count 111 L MPV TNP Immature Gran % (Auto) Neut % (Auto) Lymph % (Auto) Callahan % (Auto) Eos % (Auto) Baso % (Auto) Lymph # (Auto) Callahan # (Auto) Eos # (Auto) Baso # (Auto) Abs Immat Gran (auto) Absolute Neuts (auto) Absolute Nucleated RBC 0.000 Nucleated RBC % (auto) 0.0 Sodium 134 L Potassium 3.9 Chloride 102 Carbon Dioxide 26 Anion Gap 10 L BUN 15 Creatinine 0.99 Estim Creat Clear Calc 95.4 Estimated GFR > 60 Random Glucose 91 Calcium 8.4 D Urine Opiates Screen POSITIVE H Urine Fentanyl Screen POSITIVE H Ur Barbiturates Screen Not Detected Ur Phencyclidine Scrn Not Detected Ur Amphetamines Screen Not Detected U Benzodiazepines Scrn Not Detected Urine Cocaine Screen POSITIVE H U Marijuana (THC) Screen Not Detected COVID-19 (TIN) COVID-19 Clin Com Mental Status Exam Mental Status Exam Patient Appearance: Unkempt Patient Orientation: Person, Place, Time and Situation Level of Consciousness: Awake and Appropriate Patient Behavior: Appropriate Mood Description: Constricted Affect Description: Constricted Patient Cognition Impaired: No Thought Process: Goal Oriented Thought Content: positive for Goal Oriented Judgement: Fair Medications Medications Current Medications Acetaminophen (Acetaminophen 325 Mg Tablet) 650 mg PO Q6H PRN PRN Reason: Pain, Mild (Pain Scale 1-3) Docusate Sodium (Docusate Sodium 100 Mg Capsule) 100 mg PO DAILY PRN PRN Reason: Constipation Doxycycline Monohydrate (Doxycycline Monohydrate 100 Mg Capsule) 100 mg PO Q12H [facility] Last Admin: 03/26/22 11:43 Dose: 100 mg Enoxaparin Sodium (Enoxaparin Sodium 40 Mg/0.4 Ml Syringe) 40 mg SUBCUT Q24H [facility] Last Admin: 03/26/22 11:45 Dose: Not Given Nicotine (Nicotine 21 Mg Patch.Td24) 21 mg TRANSDERMA DAILY [facility] Last Admin: 03/26/22 09:37 Dose: 21 mg Ondansetron HCl (Ondansetron Hcl 4 Mg/2 Ml Vial) 4 mg IVPUSH Q8H PRN PRN Reason: Nausea and Vomiting Sodium Chloride (0.9 % Sodium Chloride Flush 3 Ml Syringe) 3 ml IVFLUSH QSHIFT [facility] Last Admin: 03/26/22 09:40 Dose: 3 ml Sodium Chloride (0.9 % Sodium Chloride Flush 3 Ml Syringe) 3 ml IVFLUSH [facility] Last Admin: 03/26/22 09:41 Dose: Not Given Allergies Allergies Allergy/AdvReac Type Severity Reaction Status Date / Time aspirin AdvReac Intermediate Others Verified 03/25/22 00:17 morphine AdvReac Intermediate Headache Verified 03/25/22 00:17 Assessment & Plan Assessment & Plan (1) Opioid use disorder: Status: Acute Code(s): F11.90 - Opioid use, unspecified, uncomplicated Assessment and Plan: methadone 20mg X1 to address withdrawal sx take home narcan patient to [facility] with OTP on his own (per his request) I spent ___35___ minutes with the patient and/or on the patient floor today, greater than?50% of which was spent counseling/coordinating care. PMFSH Past Medical History Medical History Abscess of arm, left Social History Social History (Updated 03/25/22 @ 12:44 by EDISON Post) Alcohol intake: never Patient Tobacco Use Status: Current everyday Tobacco user Tobacco use type: Cigarette Cigarette Packs Per Day: 0.5 Substance Use Type: Heroin
--- NOTE | 2022-03-26 12:31 | P.DS_ITS ---
DS: Providers Provider Date of Service: 03/26/22 Date of admission: 03/25/22 11:33 Date of discharge: 03/26/22 Primary care physician: None Physician Consults: 03/25/22 11:38 Addiction Medicine Routine Consulting Provider: Abbie Shane Reason for consultation: Pt with current hx of IVDA Has provider been notified: No Consult to General Surgery Routine Consulting Provider: Junior Cazares Reason for consultation: Ulcerated wounds on arms and legs Has provider been notified: No DS: Diagnosis Discharge Diagnosis (1) Opioid use disorder: Status: Acute (2) Non-healing ulcer of lower leg: Status: Acute (3) Abscess of arm, left: Status: Acute (4) Hemophilia A: Status: Acute DS: Summary Hospital Course Hospital Course: Presenting HPI: Chief Complaint: Non-healing lower leg wounds Patient is a 41-year-old male with a PMH significant for extensive IVDA and hemophilia A who presents to the ED with ulcerated, non-healing lower leg wounds. Pt states that these wounds started a few weeks ago but have worsened in the past few days. Claims they hurt a little bit. Pt uses multiple bags of heroin daily and usually shoots up in his arms, which often get similar ulcerations. ? Pt denies chest pain or pressure, palpitations, SOB. No F/C, N/V, abdominal pain. No numbness or tingling in extremities. Of note, pt is somnolent but arousable and drifts in and out of sleep. HPI is difficult to extract. Pt states that he has a prescription for Advate for his hemophilia, but is non- compliant and has not taken his meds for a long time. In the ED pt at first did not want to stay but agreed to come back after he got his girlfriend settled in. Pt came back for and was given vanco 1g IV. He will be admitted for observation and surgical consult. Hospital Course: Upon readmission patient was somnolent but arousable, but often drifting off to sleep during initial interviews. General surgery was consulted and they drained an abscess on his upper left arm. Wounds to legs were weeping but not obviously infected; there was no pus, gangrene, or necrosis. General surgery did not suggest debridement. Patient switched to doxycycline 100 p.o. twice a day. Patient had no acute concerns overnight. In the morning patient was much more alert and capable of holding a conversation. Addiction medicine was consulted and provided him with a small dose of methadone. However he had no ID on him so addiction medicine was unable to set him up at a methadone clinic. Patient will have to follow up on his own to establish such care. Patient will likewise need to establish outpatient care at [facility] for his leg ulcerations. Status at Discharge Functional status at discharge: independent ambulation Overall status at discharge: patient is back to baseline Time Spent with Patient Time attestation: Total time spent providing and/or coordinating discharge services: Discharge coordination time: Greater than 30 minutes Quality: Safe Use of Opioids Does Pt have an Active Cancer Diagnosis on the Problem List?: No Quality: Stroke Does the patient have a stroke diagnosis?: No Physical Exam Vital Signs: Vital Signs: Last Vital Signs Temp 97.9 F 03/26/22 07:31 Pulse 81 03/26/22 07:31 Resp 17 03/26/22 07:31 BP 129/60 03/26/22 07:31 Pulse Ox 98 03/26/22 07:31 O2 Del Method 03/26/22 07:31 BMI result Body Mass Index 21.5 General: AOx3, no acute distress Resp: CTA bilaterally CVS: S1, S2, RRR GI: +BS, NT, no distention Skin: Wounds in various stages of healing noted on arms and lower legs bilaterally Extremities: Bilateral lower leg ulcerations, pictures in chart from prior visit. Multiple wounds in various stages of healing on upper arms. Neuro: Motor grossly intact Psych: Appropriate affect DS: Data Data Completed and Pending Labs on day of discharge: Laboratory Results - last 24 hr 03/25/22 03/25/22 03/26/22 15:35 17:26 05:10 WBC 2.8 L RBC 4.13 L Hgb 8.8 L Hct 28.6 L MCV 69.2 L MCH 21.3 L MCHC 30.8 L RDW 17.6 H Plt Count 111 L MPV TNP Absolute Nucleated RBC 0.000 Nucleated RBC % (auto) 0.0 Sodium Potassium Chloride Carbon Dioxide Anion Gap BUN Creatinine Estim Creat Clear Calc Estimated GFR Random Glucose Calcium Urine Opiates Screen POSITIVE H Urine Fentanyl Screen POSITIVE H Ur Barbiturates Screen Not Detected Ur Phencyclidine Scrn Not Detected Ur Amphetamines Screen Not Detected U Benzodiazepines Scrn Not Detected Urine Cocaine Screen POSITIVE H U Marijuana (THC) Screen Not Detected COVID-19 (TIN) Negative COVID-19 Clin Com See Note 03/26/22 05:10 WBC RBC Hgb Hct MCV MCH MCHC RDW Plt Count MPV Absolute Nucleated RBC Nucleated RBC % (auto) Sodium 134 L Potassium 3.9 Chloride 102 Carbon Dioxide 26 Anion Gap 10 L BUN 15 Creatinine 0.99 Estim Creat Clear Calc 95.4 Estimated GFR > 60 Random Glucose 91 Calcium 8.4 D Urine Opiates Screen Urine Fentanyl Screen Ur Barbiturates Screen Ur Phencyclidine Scrn Ur Amphetamines Screen U Benzodiazepines Scrn Urine Cocaine Screen U Marijuana (THC) Screen COVID-19 (TIN) COVID-19 Clin Com Preliminary micro results at discharge 03/25/22 07:50 Blood Culture - Preliminary Blood - Venous No growth after 24 hours. 03/25/22 07:50 Blood Culture - Preliminary Blood - Venous No growth after 24 hours. Discharge Plan Discharge Patient Disposition: Home, Self-Care Discharge Diagnosis: Non-healing ulcers of lower legs Abscess of upper left arm Referrals: Physician,Irwin [Primary Care Provider] - 1 Week Suly Connolly PA [Physician Sharepoint Architect] - 1 Week (Call for appointment) Discharge Medications: New doxycycline hyclate 100 mg capsule 100 mg PO BID Qty: 20 0RF Discharge Orders: Discharge Order (Routine); Ordered 03/26/22 Ordered By: Bri Smart Diet: Advance to usual diet Activity on Discharge: As tolerated Stand Alone Forms: Patient Portal Discharge page, Community Support, Substance Abuse Outpt Detox Care Plan Goals: Healing of leg ulcers Health Concerns: IV drug use Hemophilia A Leg and arm ulcerations Plan of Treatment: Daily dressing change Complete full course of antibiotics Follow-up with wound care clinic Follow-up with methadone clinic Assessment: See discharge summary Patient Instructions: Chronic Wounds (DC), Opioid Use Disorder (DC)
--- NOTE | 2022-03-26 13:31 | MHC.CM.PN ---
PT REPORTS HE IS GOING TO BE STAYING WITH A FRIEND HE REPORTS HE IS INDEPENDENT WITH HIS CARE HE DENIES USE OF DME OR SERVICES PT HAS NO HCP AND NO PCP HE IS NOT COVID VAX OBSERVATION NOTICE DELIVERED PT WILL DC TO FRIENDS HOME TODAY WITH PLAN TO FOLLOW UP WITH WOUND CARE PT SAYS HE WILL CALL TO MAKE WOUND CARE APPT HE IS TRYING TO CALL FRIEND FOR RIDE
[2022-03-26] MEDS: Naloxone HCl Nasal TAKE HOME 4 MG SPRAY NOSTRILALT (13:51)
== END 2022-03-26 16:37 | disposition home or self-care (01) ==
LOC: HO.ED 07:18 → HO.EDOVER 13:58 → HO.OBSV 13:58 → HO.EDOVER 18:08 → HO.S3 18:19
PROVIDERS: Admitting Provider Student in an Organized Health Care Education/Training Program; Emergency Provider Emergency Medicine; Visit Provider Family Medicine
DX: L02.414 Cutaneous abscess of left upper limb (principal); L97.922 Non-pressure chronic ulcer of unspecified part of left lower leg with fat layer exposed; L97.919 Non-pressure chronic ulcer of unspecified part of right lower leg with unspecified severity; F11.23 Opioid dependence with withdrawal; D66 Hereditary factor VIII deficiency; Z20.822 Contact with and (suspected) exposure to COVID-19; F19.10 Other psychoactive substance abuse, uncomplicated; F17.210 Nicotine dependence, cigarettes, uncomplicated
CPT/HCPCS: 10060; 36415; 80048; 80307; 85025; 85027; 87040; 87081; 87635; 96365; 96372; 96375; 99218; 99285; J1650; J1885; J3370